=== PATIENT | male | born 1925 | race Caucasian/White ===

== ENCOUNTER → 2016-12-26 | Outpatient (CLI) | payer OTHER, MEDICARE ==
--- NOTE | 2016-12-26 17:08 | DX ---
Chest, PA and Lateral History: Prior amiodarone therapy, aortic valve disease Comparison: January 05, 2016 Findings: Mild cardiomegaly with redistribution of blood flow to the upper lung zones is consistent w ith compensated CHF and mild pulmonary venous hypertension. There are no pleural effusions or curly B lines. The azygos vein is not dilated. A single median sternotomy wire, aortic valve replacement, de nse atherosclerotic coronary artery disease and CABG clips are again present. There is no focal infil trate or consolidation. There is specifically no evidence of interstitial lung disease or pleural eff usion. A right shoulder implant remains in place. Multiple low thoracic and upper lumbar mild olesya sions are stable and suggest underlying osteoporosis. There is severe osteoarthritis of the left shou lder joint, with superior subluxation of the humeral head and chronic eburnation of the distal clavic le, coracoid process and glenoid. : Impression: 1. No obvious interstitial lung disease. 2. Compensated CHF 3. Suspect severe osteoporosis. Patient might benefit from a DEXA scan. 4. 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
== END ==
LOC: FIMAGING 14:18 → EDSTATUS 14:20 → FIMAGING 14:20
PROVIDERS: ATTEND Internal Medicine Cardiovascular Disease
DX: N64.4 Mastodynia (principal); I27.0 Primary pulmonary hypertension; Z79.899 Other long term (current) drug therapy; Z95.2 Presence of prosthetic heart valve; Z95.1 Presence of aortocoronary bypass graft; Z96.611 Presence of right artificial shoulder joint; M19.012 Primary osteoarthritis, left shoulder

== ENCOUNTER → 2017-04-21 | Outpatient (CLI) | payer OTHER, MEDICARE | LOC: FIMAGING 08:48 | PROVIDERS: ATTEND Internal Medicine Pulmonary Disease | DX: I50.9 Heart failure, unspecified (principal); I25.10 Atherosclerotic heart disease of native coronary artery without angina pectoris; I35.9 Nonrheumatic aortic valve disorder, unspecified ==

== ENCOUNTER 2017-04-22 06:54 | Inpatient (IN) | payer OTHER, MEDICARE ==
[2017-04-22] MEDS ORDERED: FUROSEMIDE 40 MG/4 ML VIAL IVP ONE (07:32)
--- NOTE | 2017-04-22 07:37 | EDPHY ---
H & P Time Seen by Provider: 04/22/17 07:16 HPI/ROS: HPI Shortness of breath. 89-year-old male, history of heart valve replacement and congestive heart failure presents with complaint of shortness of breath, worsening over the last 2 weeks, his coverage analyst is Dr. Shady Madison. Dr. Madison ordered some blood work and a chest x-ray on him yesterday but did not see him. Dr. Madison wanted him to come to the hospital last night but he refused. He reports he was feeling more short of breath this morning. No associated chest pain. He is on oxygen at home, he has been using 4-5 L by nasal cannula 24-7 for the last several days at least. ROS: Constitutional: No fever, no chills. No weakness. Eyes: No discharge. No changes in vision. ENT: No sore throat. No nasal congestion or rhinorrhea. Respiratory: No cough. As above. Cardiac: No chest pain, no palpitations. Gastrointestinal: No abdominal pain, no vomiting, no diarrhea. Genitourinary: No hematuria. No dysuria or increased frequency with urination. Musculoskeletal: No back pain. No neck pain. No myalgias or arthralgias. Skin: No rashes. Neurological: No headache. No focal weakness or altered sensation. Past medical history: Aortic valve replacement, June of 2014, hypertension, coronary artery disease with stents, atrial arrhythmia, prostate cancer with prostatectomy, spinal stenosis, dyslipidemia, AV valve replacement 2014, hypothyroidism, pulmonary embolism 2014. He is on aspirin. No other antiplatelet or anticoagulation medication. Social history: He is here with his . Nonsmoker. No alcohol. Physical Exam: General Appearance: Alert, no distress. Mildly dyspneic. This patient is responding to questions appropriately and in full sentences. This patient appears well-hydrated and well-nourished. Eyes: Pupils equal and round no pallor or injection. No lid edema, erythema or injection. ENT, Mouth: Mucous membranes are moist. The pharyngeal tissues are unremarkable. No edema or swelling. No asymmetry suggestive of abscess. No erythema or exudates. Respiratory: There are no retractions, scant wheezing on auscultation with shallow breaths and mild tachypnea. Cardiovascular: Irregular rhythm. No murmur. Gastrointestinal: Abdomen is soft and nontender, no masses, bowel sounds normal. No focal tenderness at McBurney's point. No Harris sign. Neurological: Motor sensory function is grossly intact. Cranial nerves are normal. Gait is normal. Skin: Warm and dry, no rashes. Musculoskeletal: Neck is supple and nontender. Extremities are asymmetrical with diffuse edema, 1+ in right lower extremity, patient states that right lower extremity swelling is chronic. All joints range without pain or impingement. Psychiatric: No agitation. No depression. Database: EKG: EKG time is 7:37 a.m.; EKG shows a narrow complex atrial fibrillation with ventricular rate of 70 The QRS, QT intervals are within normal limits. There are no ST-T wave changes indicative of ischemic or injury pattern. No evidence of right heart strain. No significant change from prior EKG dated 01/05/2016. Interpreted by me. Imaging: Chest x-ray AP portable; [id number] congestive heart failure, left-sided pleural effusion unchanged from prior. No evidence of infiltrate. Interpreted by me. Ultrasound right lower extremity; no evidence of DVT. Results were discussed with staff radiologist. Procedures: Emergency department course: IV placed. He was placed on a cardiac rehabilitation program director. EKG and chest x-ray obtained. He was placed on oxygen, 4 L by nasal cannula. Vital signs have been reviewed. Pulse oximetry 92-94% on 4 L. he takes 20 mg of Lasix twice daily. He was given 40 mg IV in the emergency department. 8:45 a.m., patient re-evaluated. Resting comfortably at this time. He is currently on 2 and 0.5 L of oxygen by nasal cannula. Pulse oximetry is 94%. He states that he is feeling better. Narrow complex atrial fibrillation on the monitor with ventricular rate of 61. Blood pressure 160/70. Discussed results of emergency department diagnostics with him and his . Discussed plan for admission. All of their questions were answered. 9:00 a.m., discussed case with hospitalist. Patient accepted for admission by Dr. Almanza. The patient's coverage analyst Dr. Shady Madison will be consulted. D -dimer elevated at 0.77. Will hold CT angiogram at this time secondary to renal insufficiency. Further workup for pulmonary embolism will be deferred to hospitalist service. Patient admitted to telemetry in stable condition. Differential Diagnosis: The differential diagnosis on this patient includes but is not limited to congestive heart failure, reactive airway disease, acute coronary syndrome, pulmonary embolism. This represents a partial list of diagnoses considered. These considerations are based on history, physical exam, past history, reassessment and diagnostic testing. Smoking Status: Former smoker Constitutional: Initial Vital Signs Temperature (C) 36.4 C 04/22/17 06:59 Heart Rate 64 04/22/17 06:59 Respiratory Rate 22 H 04/22/17 06:59 Blood Pressure 184/60 H 04/22/17 06:59 O2 Sat (%) 92 04/22/17 06:59 O2 Delivery Mode Nasal Cannula O2 (L/minute) 2 Allergies/Adverse Reactions: Penicillins Allergy (Unknown, Verified 04/22/17 07:03) clopidogrel bisulfate [From Plavix] Allergy (Verified 04/22/17 07:03) Home Medications: Medication Instructions Recorded Acetaminophen [Tylenol 325mg (*)] 1 - 2 tab PO Q6 PRN 01/05/16 Amiodarone HCl [Pacerone] 50 mg PO DAILY 01/05/16 Aspirin [Aspirin 81mg (*)] 81 mg PO DAILY 01/05/16 Fluticasone Nasal [Flonase Nasal 2 sprays NASAL DAILY 01/05/16 [place]] Furosemide [Lasix 20 MG (*)] 20 mg PO DAILY 01/05/16 Levothyroxine [Synthroid 50 mcg 50 mcg PO DAILY06 01/05/16 (*)] Metoprolol Tartrate [Lopressor 50 50 mg PO BID 01/05/16 mg (*)] Polyethylene Glycol 3350 [Miralax 17 gm PO DAILY PRN 01/05/16 17 gm (*)] Spironolactone [Aldactone 25 MG 12.5 mg PO DAILY 01/05/16 (*)] amLODIPine BESYLATE [Norvasc 5 mg 5 mg PO DAILY 01/05/16 (*)] Acetaminophen [Tylenol 325mg (*)] 650 mg PO Q6 PRN #0 tab 01/07/16 Pantoprazole Sodium [Protonix 40mg 40 mg PO DAILY #30 tab 01/07/16 (*)] Medical Decision Making - Diagnostics Imaging Results: Imaging Impressions Chest X-Ray 04/22/17 07:17 Impression: Minimally worse CHF versus fluid overload since one day prior. Extremity Venous Study 04/22/17 07:33 Impression: There is no sonographic evidence of deep or superficial vein thrombosis in the right lower extremity. Findings were discussed with Tara Paul MD at 8:21 am, on 04/22/2017. - Data Points Laboratory Results: Laboratory Results 04/22/17 07:45 04/22/17 07:45 04/22/17 04/22/17 04/22/17 07:45 07:45 07:45 WBC 6.12 10^3/uL 10^3/uL (3.80-9.50) RBC 3.09 10^6/uL L 10^6/uL (4.40-6.38) Hgb 11.0 g/dL L g/dL (13.7-17.5) Hct 33.5 % L % (40.0-51.0) MCV 108.4 fL H fL (81.5-99.8) MCH 35.6 pg H pg (27.9-34.1) MCHC 32.8 g/dL g/dL (32.4-36.7) RDW 15.5 % H % (11.5-15.2) Plt Count 226 10^3/uL 10^3/uL (150-400) MPV 9.5 fL fL (8.7-11.7) Neut % (Auto) 73.3 % % (39.3-74.2) Lymph % (Auto) 15.0 % % (15.0-45.0) [place] % (Auto) 8.2 % % (4.5-13.0) Eos % (Auto) 2.3 % % (0.6-7.6) Baso % (Auto) 0.7 % % (0.3-1.7) Nucleat RBC Rel Count 0.0 % % (0.0-0.2) Absolute Neuts (auto) 4.49 10^3/uL 10^3/uL (1.70-6.50) Absolute Lymphs (auto) 0.92 10^3/uL L 10^3/uL (1.00-3.00) Absolute Monos (auto) 0.50 10^3/uL 10^3/uL (0.30-0.80) Absolute Eos (auto) 0.14 10^3/uL 10^3/uL (0.03-0.40) Absolute Basos (auto) 0.04 10^3/uL 10^3/uL (0.02-0.10) Absolute Nucleated RBC 0.00 10^3/uL 10^3/uL (0-0.01) Immature Gran % 0.5 % % (0.0-1.1) Immature Gran # 0.03 10^3/uL 10^3/uL (0.00-0.10) PT 14.8 SEC SEC (12.0-15.0) INR 1.16 (0.83-1.16) APTT 28.1 SEC SEC (23.0-38.0) D-Dimer 0.77 ug/mLFEU H ug/mLFEU (0.00-0.50) Sodium 141 mEq/L mEq/L (134-144) Potassium 4.6 mEq/L mEq/L (3.5-5.2) Chloride 101 mEq/L mEq/L (97-110) Carbon Dioxide 28 mEq/l mEq/l (22-31) Anion Gap 12 mEq/L mEq/L (8-16) BUN 27 mg/dL H mg/dL (7-23) Creatinine 1.7 mg/dL H mg/dL (0.7-1.3) Estimated GFR 38 Glucose 106 mg/dL H mg/dL (70-100) Calcium 8.7 mg/dL mg/dL (8.5-10.4) Troponin I 0.038 ng/mL H ng/mL (0-0.034) NT-Pro-B Natriuret Pep 2800 pg/mL H pg/mL (0-450) TSH 2.400 uIU/mL uIU/mL (0.465-4.680) Medications Given: Discontinued Medications Furosemide (Lasix Injection) 40 mg IVP EDNOW ONE Stop: 04/22/17 07:33 Last Admin: 04/22/17 07:45 Dose: 40 mg Departure - Departure Disposition: [facility] Inpatient Acute Clinical Impression: Dyspnea, Hypoxia, Congestive heart failure Referrals: Jonathan Nichols MD [Primary Care Provider] - As per Instructions
--- NOTE | 2017-04-22 07:39 | CPEKG ---
Heart Rate: 70 RR Interval: 857 QRSD Interval: 82 QT Interval: 416 QTC Interval: 449 QRS [place]: 32 T Wave [place]: 89 EKG Severity - ABNORMAL ECG - EKG Impression: ATRIAL FIBRILLATION EKG Impression: BORDERLINE T WAVE ABNORMALITIES Electronically Signed By: Shaun Lewis 24-Apr-2017 09:00:16
[2017-04-22 07:52] LABS: % IMMATURE GRANULYOCYTES 0.5 % (0.0-1.1); ABSOLUTE IMMATURE GRANULOCYTES 0.03 10^3/uL (0.00-0.10); ADD DIFF? NO; ADD MORPH? NO; ADD SCAN? NO; ATYPICAL LYMPHOCYTE FLAG 0 (0-99); FRAGMENT RBC FLAG 0 (0-99); HEMATOCRIT 33.5 % (40.0-51.0); LEFT SHIFT FLG 0 (0-99); LIPEMIA HEMOLYSIS FLAG 80 (0-99); MEAN CELL HEMOGLOBIN 35.6 pg (27.9-34.1); MEAN CELL HEMOGLOBIN CONCENTR. 32.8 g/dL (32.4-36.7); MEAN CELL VOLUME 108.4 fL (81.5-99.8); MEAN PLATELET VOLUME 9.5 fL (8.7-11.7); PLATELET CLUMPS FLAG 10 (0-99); PLATELET COUNT 226 10^3/uL (150-400); RED BLOOD CELL COUNT 3.09 10^6/uL (4.40-6.38); RED CELL DISTRIBUTION WIDTH 15.5 % (11.5-15.2)
[2017-04-22 08:02] LABS: ANION GAP 12 mEq/L (8-16); CALCIUM 8.7 mg/dL (8.5-10.4); CARBON DIOXIDE 28 mEq/l (22-31); CHLORIDE 101 mEq/L (97-110); CREATININE 1.7 mg/dL (0.7-1.3); GLOMERULAR FILTRATION RATE 38; GLUCOSE 106 mg/dL (70-100); POTASSIUM 4.6 mEq/L (3.5-5.2); SODIUM 141 mEq/L (134-144)
[2017-04-22 08:11] LABS: INR 1.16 (0.83-1.16); PROTIME(PATIENT) 14.8 SEC (12.0-15.0)
[2017-04-22 08:12] LABS: APTT 28.1 SEC (23.0-38.0)
[2017-04-22 08:21] LABS: TROPONIN I 0.038 ng/mL (0-0.034)
[2017-04-22] MEDS ORDERED: ONDANSETRON DISINTEGRATING 4 MG TAB PO PRN (11:50)
[2017-04-22] MEDS ORDERED: ACETAMINOPHEN 325 MG TAB PO PRN (11:50)
[2017-04-22] MEDS ORDERED: IPRATROPIUM 0.03% NASAL SPRAY EACHNARE PRN (11:52)
[2017-04-22] MEDS ORDERED: ZOLPIDEM TARTRATE 5 MG TAB PO PRN (11:52)
[2017-04-22] MEDS ORDERED: POLYETHYLENE GLYCOL 3350 17 GM PKT PO PRN (11:52)
[2017-04-22] MEDS ORDERED: FLUTICASONE NASAL 120 SPRAYS/16 GM MDI EACHNARE PRN (11:52)
[2017-04-22] MEDS ORDERED: TESTOSTERONE IM 100 MG/ML SYRINGE IM SCH (12:00)
--- NOTE | 2017-04-22 12:33 | GHP ---
[f rep st] HISTORY AND PHYSICAL DATE OF ADMISSION: 04/22/2017 CHIEF COMPLAINT: Shortness of breath. HISTORY OF PRESENT ILLNESS: This is an 89-year-old man with multiple medical problems who presents with a few weeks of shortness of breath. He saw his primary care provider, Dr. Nichols, about 3 we eks ago. He was noted to be tachypneic. At that point, went from using nocturnal oxygen to 24/7 ox ygen. He called Dr. Shady Madison, his racing board marker, who did order lab work, as well as a chest x-r ay. Dr. Madison then called him back and recommended that he come into the emergency department. He has chronic chest pain, which sounds sternal, due to previous sternotomy, which is unchanged. He do es have orthopnea. He has no weight gain or new lower extremity edema. He has been compliant with his cardiac medications, including his furosemide. He says that he does urinate when he takes it. He has not seen his drilling contractor recently. He has not had an echocardiogram recently. PAST MEDICAL/SURGICAL HISTORY: 1. Aortic valve replacement in 2013 with a redo operation in 2014. 2. Coronary artery disease, status post 7 stents, followed by Dr. Jones. 3. Hypertension. 4. Prostate cancer, status post prostatectomy. 5. Spinal stenosis. 6. Hyperlipidemia. 7. Hypothyroid. 8. PE in 2014, off anticoagulation due to acute blood loss anemia from presumed GI bleed. 9. Chronic kidney disease. 10. Paroxysmal atrial fibrillation. 11. Chronic respiratory failure. MEDICATIONS: Please see medication reconciliation. ALLERGIES: Penicillins, as well as clopidogrel. FAMILY HISTORY: Parents are . SOCIAL HISTORY: He lives at [facility]. He drinks a glass a wine at night. He does not smoke . He is accompanied by his . REVIEW OF SYSTEMS: A 10-point review of systems is conducted and is negative except per HPI. PHYSICAL EXAMINATION: VITAL SIGNS: Blood pressure is 174/64, heart rate is 57, respiration rate 23 , saturating 97% on 3 L. Temperature is 36.3. GENERAL: The patient is a pleasant man who appears mildly tachypneic but otherwise in no acute distress. HEENT: Shows him to be normocephalic, atraum atic. CARDIOVASCULAR: Exam shows him to be irregularly irregular. I do not appreciate any murmurs , rubs, or gallops. PULMONARY: Exam shows bilateral basilar crackles. He is in mild respiratory d istress. ABDOMEN: Soft, nontender, nondistended. SKIN: No rash. : Exam shows no [place]. NEUR OLOGIC: Exam shows him to be alert and oriented x3. He is moving all extremities. PSYCHIATRIC: E xam shows a normal mood and affect. LABORATORY DATA: Hemoglobin is 11. D-dimer 0.77, creatinine is 1.7. BNP is 2800. Troponin 0.038. DATA: 1. I reviewed his chart. 2. I reviewed his extremity venous study. This shows no clot in his right lower extremity. 3. I personally viewed and interpreted his chest x-ray. This shows left-sided pleural effusion. H callie has mild pulmonary vascular congestion. 4. EKG, which I personally viewed and interpreted, shows atrial fibrillation. He has a normal axis ; his rate is 70. IMPRESSION AND PLAN: This is an 89-year-old man who presents with acute on chronic congestive heart failure exacerbation. 1. Acute on chronic congestive heart failure exacerbation: No clear precipitants. He has known va lvular disease, status post aortic valve replacement, as well as diastolic dysfunction; last ejectio n fraction was normal. Agree with diuresis as started by the emergency department. We will check a [facility] basic metabolic panel before more Lasix today. I scheduled him to get Lasix 20 IV b.i.d. sta rting tomorrow morning. We will continue his Aldactone, metoprolol. I wonder if carvedilol would n ot be a better medicine for him. 2. Acute hypoxic respiratory failure: Strongly suspect that this is due to congestive heart failur e. He does have a D-dimer of 0.77 with a history of a clot. Will not get a CT angio given his radu l failure. I do not think empiric anticoagulation is appropriate, given his history of 2 life-threa tening gastrointestinal bleeds. Will follow his symptoms with Lasix and see if they resolve. If no t, could consider other diagnostic studies like V-Q scan. 3. Indeterminate troponin: Will trend. I doubt that this is an acute myocardial infarction, given his normal electrocardiogram and subacute presentation. 4. Coronary artery disease, status post 7 stents: Continue his cardiac medications. 5. Aortic valve replacement in 2013, status post redo in 2015: Check echocardiogram. 6. Hypertension: Continue antihypertensives. 7. Hyperlipidemia: Statin. 8. Hypothyroid: Synthroid. 9. History of pulmonary embolism in 2015: Off anticoagulation due to gastrointestinal bleeds. 10. Chronic kidney disease: At baseline, follow closely with diuresis. 11. Atrial fibrillation: Rate controlled on metoprolol. Continue aspirin for cerebrovascular acci dent prophylaxis. 12. Code status is do not resuscitate. 13. Venous thromboembolism prophylaxis will be with subcutaneous heparin. /[id number]/MODL
[2017-04-22] MEDS: HEPARIN 5,000 UNIT/0.5 ML SYR SC SCH ×2 (13:29→22:53)
--- NOTE | 2017-04-22 14:40 | ECHO ---
[id number] + + [address] : : [place] [address] : : [phone] + Adult Echocardiographic Report + --------+ :Name: SAHIL MOY JStudy Date: 04/22/2017 12:47 PM : : Hospital Admission Number: [id number] Locat ion: 211: :: 1925 Gender: Male Height: 66 in : :Age: 89 yrs Race: WH Weight: 166 l b : :Reason For Study: Eval LV Fx : : BSA: 1.8 mete rs2 : :History: Hx AVR 2015, Hypoxia, New onset A-fib : + --------+ MMode/2D Measurements \T\ Calculations IVSd: 1.2 cm LVIDd: 4.2 cm FS: 38.0 % LVOT diam: 2.1 cm LVPWd: 1.1 cm LVIDs: 2.6 cm EDV(Teich): 78.3 ml LVOT area: 3.5 cm2 ESV(Teich): 24.6 ml EF(Teich): 68.6 % Normal Measurement Values: + + :LVIDd (3.5-5.7cm) IVSd (0.6-1.1cm) LVPWd (0.6-1.1cm) Aortic Root (2.0-3.7cm)Left Atrium (1.5-4.0cm): :LV Vol(d) (76-115ml) LV Vol(s) (29-48ml) Ejec Fraction (50-65%)PV Miguel (0.6- 1.2m/s) TV Miguel (0.4-1.0m/s) : :MV E Miguel (0.8-1.0m/s)MV A Miguel (0.3-1.0m/s)LVOT Miguel (0.7-1.2m/s) Asc Ao Miguel ( 0.9-1.8m/s) : + + Doppler Measurements \T\ Calculations MV E max miguel: Ao V2 max: LV V1 max: SV(LVOT): 176.2 cm/sec 191.4 cm/sec 73.4 cm/sec 58.1 ml MV A max miguel: Ao max P.7 mmHgLV V1 max P.3 cm/sec Ao mean P.6 mmHg2.2 mmHg MV E/A: 2.9 Ao V2 mean: LV V1 mean P.6 cm/sec 1.6 mmHg Ao V2 VTI: 47.9 cm LV V1 mean: MADI(I,D): 1.2 cm2 61.9 cm/sec LV V1 VTI: 16.8 cm MADI(V,D): 1.3 cm2 PA V2 max: 86.9 cm/sec PA max P.0 mmHg Left Ventricle The left ventricle is normal in size. There is normal left ventricular wall thickness. The left ventricular ejection fraction is normal. There is Doppler evidence for diastolic dysfunction. The left ventricle is hyperdynamic. Ejection Fraction = 75%. No regional wall motion abnormalities noted. Right Ventricle The right ventricle is normal in size and function. Atria The left atrium is moderately dilated. The right atrium is mildly dilated. Mitral Valve There is mild mitral annular calcification. There is trace mitral regurgitation. Tricuspid Valve There is trace tricuspid regurgitation. Right ventricular systolic pressure is normal. Aortic Valve Trace aortic regurgitation. There is a bioprosthetic aortic valve. The prosthetic aortic valve is well-seated. The gradient is normal for this prosthetic aortic valve. Pulmonic Valve The pulmonic valve is not well visualized. There is no pulmonic valvular regurgitation. Great Vessels The aortic root is normal size. Pericardium/Pleural There is no pericardial effusion. Conclusion A complete two-dimensional transthoracic echocardiogram was performed (2D, M-mode, Doppler and color flow Doppler). (1) Left ventricular systolic ejection fraction was normal (75%) - normal wall motion (2) No left ventricular hypertrophy (3) Diastolic dysfunction was present (4) Normal right ventricular size and function (5) Moderate dilation of the left atrium with mild dilation to the right (6) Physiologic mitral regurgitation (7) Bioprosthetic aortic valve without appreciable insufficiency noted - mean gradient was 9.6 mm Hg (8) Physiologic tricuspid regurgitation - RVSP was within normal limits (9) Poor visualization of pulmonic valve (10) In comparison to prior echocardiogram from 08-15-15, trivial increase in the mean gradient to the aortic valve has been noted (from 6.1 mm Hg to 9.6 mm Hg). No other gross changes noted. Final Reading Physician: Jaida Pierre signed on 04/22/2017 02:39 PM Ordering Physician: Lennox Almanza Performed By: Juan Jacinto RDCS
[2017-04-22 16:32] LABS: ANION GAP 13 mEq/L (8-16); CALCIUM 8.9 mg/dL (8.5-10.4); CARBON DIOXIDE 28 mEq/l (22-31); CHLORIDE 99 mEq/L (97-110); CREATININE 1.9 mg/dL (0.7-1.3); GLOMERULAR FILTRATION RATE 34; GLUCOSE 91 mg/dL (70-100); POTASSIUM 4.4 mEq/L (3.5-5.2); SODIUM 140 mEq/L (134-144)
[2017-04-22 16:44] LABS: TROPONIN I 0.032 ng/mL (0-0.034)
[2017-04-22] MEDS: ASPIRIN 81 MG CHEWABLE TAB PO SCH (19:54)
[2017-04-22] MEDS: METOPROLOL SUCCINATE XR 25 MG TAB PO SCH (19:54)
[2017-04-22] MEDS: ATORVASTATIN CALCIUM 20 MG TAB PO SCH (19:54)
[2017-04-22] MEDS ORDERED: NON-FORMULARY NEW DRUG (Simvastatin [Zocor] 40 MG) PO SCH (21:00)
[2017-04-23 04:31] LABS: % IMMATURE GRANULYOCYTES 0.5 % (0.0-1.1); ABSOLUTE IMMATURE GRANULOCYTES 0.03 10^3/uL (0.00-0.10); ADD DIFF? NO; ADD MORPH? NO; ADD SCAN? NO; ATYPICAL LYMPHOCYTE FLAG 0 (0-99); FRAGMENT RBC FLAG 0 (0-99); HEMATOCRIT 32.6 % (40.0-51.0); HEMOGLOBIN 10.7 g/dL (13.7-17.5); LEFT SHIFT FLG 0 (0-99); LIPEMIA HEMOLYSIS FLAG 80 (0-99); MEAN CELL HEMOGLOBIN 35.5 pg (27.9-34.1); MEAN CELL HEMOGLOBIN CONCENTR. 32.8 g/dL (32.4-36.7); MEAN CELL VOLUME 108.3 fL (81.5-99.8); MEAN PLATELET VOLUME 10.6 fL (8.7-11.7); PLATELET CLUMPS FLAG 0 (0-99); PLATELET COUNT 227 10^3/uL (150-400); RED BLOOD CELL COUNT 3.01 10^6/uL (4.40-6.38); RED CELL DISTRIBUTION WIDTH 15.3 % (11.5-15.2)
[2017-04-23 04:58] LABS: ANION GAP 12 mEq/L (8-16); CALCIUM 8.3 mg/dL (8.5-10.4); CARBON DIOXIDE 24 mEq/l (22-31); CHLORIDE 103 mEq/L (97-110); CREATININE 1.9 mg/dL (0.7-1.3); GLOMERULAR FILTRATION RATE 34; GLUCOSE 93 mg/dL (70-100); POTASSIUM 4.3 mEq/L (3.5-5.2); SODIUM 139 mEq/L (134-144)
[2017-04-23] MEDS: LEVOTHYROXINE 50 MCG TAB PO SCH (06:28)
[2017-04-23] MEDS: HEPARIN 5,000 UNIT/0.5 ML SYR SC SCH ×3 (06:28→21:35)
[2017-04-23] MEDS: amLODIPine BESYLATE 5 MG TAB PO SCH (08:35)
[2017-04-23] MEDS: FUROSEMIDE 20 MG/2 ML VIAL IVP SCH ×2 (08:36→15:26)
[2017-04-23] MEDS: METOPROLOL SUCCINATE XR 25 MG TAB PO SCH ×2 (08:36→21:35)
[2017-04-23] MEDS: SPIRONOLACTONE 25 MG TAB PO SCH (08:36)
--- NOTE | 2017-04-23 09:36 | HOSPPROG ---
Hospitalist Progress Note Assessment/Plan: # acute on chronic diastolic CHF exacerbation - some diuresis yesterday - cont lasix 20 iv bid if he tolerates; cont aldactone - cont metop 20 25 bid - CXR tomorrow # a-fib: metop and asa (no AC d/t GIB) # htn: amlodipine, lasix, aldactone, metop - may need to hold amlodipine # CAD/indet trop - will not w/u further - cont asa/metop/statin # AVR - gradients normal on echo # hypothyroid - synthroid # hx PE - off AC d/t GIB # CKD - baseline; follow closely # ppx - [facility] Subjective: feels slightly lightheaded, difficulty ambulating Objective: Vital Signs Temp Pulse Resp BP Pulse Ox 36.4 C 81 18 140/47 H 97 04/23/17 07:48 04/23/17 09:23 04/23/17 07:48 04/23/17 09:23 04/23/17 07:48 Laboratory Results 04/23/17 03:33 04/23/17 03:33 04/22/17 04/23/17 04/24/17 05:59 05:59 05:59 Intake Total 200 Output Total 950 Balance -750 PT 14.8 SEC (12.0-15.0) 04/22/17 07:45 INR 1.16 (0.83-1.16) 04/22/17 07:45 tele personally reviewed - a-fib - Physical Exam Constitutional: no apparent distress, appears nourished Cardiovascular: regular rate and rhythym, no murmur, rub, or gallop Respiratory: no respiratory distress (mild), inspiratory crackles (bilat bases) , No clear to auscultation, No expiratory wheeze, No rhonchi Gastrointestinal: normoactive bowel sounds, soft, non-tender abdomen, no palpable masses ICD10 Worksheet Patient Problems: Problems Problem Status Onset Chronic Disease Mgmt/Transitional Care Acute Congestive heart failure Acute Dyspnea Acute Hypoxia Acute Dyspnea on exertion Acute Mitral valve insufficiency Acute Prosthetic cardiac paravalvular leak Acute S/P aortic valve replacement with bioprosthetic valve Acute Atrial fibrillation, chronic Chronic Beta-christiano intolerance Chronic CAD (coronary artery disease) Chronic CKD (chronic kidney disease) stage 3, GFR 30-59 ml/min Chronic COPD, mild Chronic Chronic anemia Chronic Chronic anticoagulation Chronic Oxygen dependent Chronic Physical deconditioning Chronic Pulmonary hypertension, secondary Chronic Sick sinus syndrome Chronic Spinal stenosis of lumbar region Chronic
[2017-04-23] MEDS: WHITE WINE 120 ML BOTTLE PO SCH (16:55)
[2017-04-23] MEDS: ASPIRIN 81 MG CHEWABLE TAB PO SCH (21:35)
[2017-04-23] MEDS: ATORVASTATIN CALCIUM 20 MG TAB PO SCH (21:35)
[2017-04-24 04:48] LABS: % IMMATURE GRANULYOCYTES 0.6 % (0.0-1.1); ABSOLUTE IMMATURE GRANULOCYTES 0.04 10^3/uL (0.00-0.10); ADD DIFF? NO; ADD MORPH? NO; ADD SCAN? NO; ATYPICAL LYMPHOCYTE FLAG 0 (0-99); FRAGMENT RBC FLAG 0 (0-99); HEMATOCRIT 33.4 % (40.0-51.0); HEMOGLOBIN 10.9 g/dL (13.7-17.5); LEFT SHIFT FLG 0 (0-99); LIPEMIA HEMOLYSIS FLAG 80 (0-99); MEAN CELL HEMOGLOBIN CONCENTR. 32.6 g/dL (32.4-36.7); MEAN CELL VOLUME 107.4 fL (81.5-99.8); MEAN PLATELET VOLUME 10.4 fL (8.7-11.7); PLATELET CLUMPS FLAG 10 (0-99); PLATELET COUNT 236 10^3/uL (150-400); RED BLOOD CELL COUNT 3.11 10^6/uL (4.40-6.38)
[2017-04-24 05:03] LABS: ANION GAP 13 mEq/L (8-16); CALCIUM 8.3 mg/dL (8.5-10.4); CARBON DIOXIDE 24 mEq/l (22-31); CHLORIDE 102 mEq/L (97-110); CREATININE 1.9 mg/dL (0.7-1.3); GLOMERULAR FILTRATION RATE 34; GLUCOSE 93 mg/dL (70-100); POTASSIUM 4.1 mEq/L (3.5-5.2); SODIUM 139 mEq/L (134-144)
[2017-04-24] MEDS: HEPARIN 5,000 UNIT/0.5 ML SYR SC SCH ×3 (06:39→21:21)
[2017-04-24] MEDS: LEVOTHYROXINE 50 MCG TAB PO SCH (06:39)
[2017-04-24] MEDS: FUROSEMIDE 20 MG/2 ML VIAL IVP SCH ×2 (09:24→15:48)
[2017-04-24] MEDS: SPIRONOLACTONE 25 MG TAB PO SCH (09:27)
[2017-04-24] MEDS: METOPROLOL SUCCINATE XR 25 MG TAB PO SCH ×2 (09:27→21:21)
[2017-04-24] MEDS: amLODIPine BESYLATE 5 MG TAB PO SCH (09:28)
--- NOTE | 2017-04-24 09:53 | HOSPPROG ---
Hospitalist Progress Note Assessment/Plan: # acute on chronic diastolic CHF exacerbation - good diuresis - improving - cont lasix 20 iv bid; cont aldactone - CXR tomorrow # a-fib: metop and asa (no AC d/t GIB) # htn: amlodipine, lasix, aldactone, metop # CAD/indet trop - will not w/u further - defer to outpatient - cont asa/metop/statin # AVR - gradients normal on echo # hypothyroid - synthroid # hx PE - off AC d/t GIB # CKD - baseline; follow closely # ppx - [facility] # dispo - hopefully tomorrow to [place] independent Subjective: breathing better; ambulating well; wants to go home Objective: Vital Signs Temp Pulse Resp BP Pulse Ox 36.4 C 66 23 H 157/63 H 94 04/24/17 07:05 04/24/17 09:27 04/24/17 07:05 04/24/17 09:27 04/24/17 07:05 Laboratory Results 04/24/17 03:40 04/24/17 03:40 04/23/17 04/24/17 04/25/17 05:59 05:59 05:59 Intake Total 200 1534 Output Total 950 1126 Balance -750 408 PT 14.8 SEC (12.0-15.0) 04/22/17 07:45 INR 1.16 (0.83-1.16) 04/22/17 07:45 CXR personally viewed and interpreted tele personally reviewed - Physical Exam Constitutional: no apparent distress, appears nourished Cardiovascular: systolic murmur, irregularly irregular, No diastolic murmur, No tachycardia, No bradycardia, No edema Respiratory: no respiratory distress, no rales or rhonchi, inspiratory crackles (bilat bases) Gastrointestinal: normoactive bowel sounds, soft, non-tender abdomen, no palpable masses ICD10 Worksheet Patient Problems: Problems Problem Status Onset Chronic Disease Mgmt/Transitional Care Acute CAD (coronary artery disease) Chronic Prosthetic cardiac paravalvular leak Acute Sick sinus syndrome 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
[2017-04-24] MEDS: WHITE WINE 120 ML BOTTLE PO SCH (17:52)
[2017-04-24] MEDS: HYDROCORTISONE 1% CREAM TP SCH (19:30)
[2017-04-24] MEDS: ATORVASTATIN CALCIUM 20 MG TAB PO SCH (21:21)
[2017-04-24] MEDS: ASPIRIN 81 MG CHEWABLE TAB PO SCH (21:21)
[2017-04-25 04:52] LABS: POTASSIUM 4.2 mEq/L (3.5-5.2)
[2017-04-25 04:53] LABS: ANION GAP 11 mEq/L (8-16); CALCIUM 8.5 mg/dL (8.5-10.4); CARBON DIOXIDE 25 mEq/l (22-31); CHLORIDE 101 mEq/L (97-110); CREATININE 1.8 mg/dL (0.7-1.3); GLOMERULAR FILTRATION RATE 36; GLUCOSE 95 mg/dL (70-100); SODIUM 137 mEq/L (134-144)
[2017-04-25] MEDS: LEVOTHYROXINE 50 MCG TAB PO SCH (06:40)
[2017-04-25] MEDS: HEPARIN 5,000 UNIT/0.5 ML SYR SC SCH (06:40)
[2017-04-25] MEDS: METOPROLOL SUCCINATE XR 25 MG TAB PO SCH (08:06)
[2017-04-25] MEDS: amLODIPine BESYLATE 5 MG TAB PO SCH (08:07)
[2017-04-25] MEDS: FUROSEMIDE 20 MG/2 ML VIAL IVP SCH (08:07)
[2017-04-25] MEDS: SPIRONOLACTONE 25 MG TAB PO SCH (08:07)
[2017-04-25] MEDS ORDERED: FUROSEMIDE 40 MG/4 ML VIAL IVP ONE (10:38)
--- NOTE | 2017-04-25 10:55 | HOSPPROG ---
Hospitalist Progress Note Assessment/Plan: 89 yo M w AVR a/w dyspnea, orthopnea acute on chronic diastolic CHF exacerbation - good diuresis - improving give add'l 40 of IV lasix today take 40 mg po lasix X 3 days at home f/u next week w cardiology -cxr w improved but not resolved chf a-fib: metop and asa (no AC d/t GIB) htn: amlodipine, lasix, aldactone, metop CAD/indet trop - will not w/u further - defer to outpatient - cont asa/metop/statin AVR - gradients normal on echo hypothyroid - synthroid hx PE - off AC d/t GIB CKD - baseline; follow closely ppx - [facility] dispo - home today > 30 minutes Subjective: tele: no arrhythmia (intero by me). case d/w cardiology PARIS Chaudhary. cxr: improved chf (interp by me) Objective: Vital Signs Temp Pulse Resp BP Pulse Ox 35.8 C L 58 L 17 142/66 H 99 04/25/17 08:00 04/25/17 08:00 04/25/17 08:00 04/25/17 08:00 04/25/17 08:00 Laboratory Results 04/24/17 03:40 04/25/17 03:34 04/24/17 04/25/17 04/26/17 05:59 05:59 05:59 Intake Total 1534 400 240 Output Total 1126 800 Balance 408 -400 240 PT 14.8 SEC (12.0-15.0) 04/22/17 07:45 INR 1.16 (0.83-1.16) 04/22/17 07:45 - Physical Exam Constitutional: no apparent distress, appears nourished Eyes: PERRL, anicteric sclera Ears, Nose, Mouth, Throat: moist mucous membranes, hearing normal, ears appear normal Cardiovascular: regular rate and rhythym, no murmur, rub, or gallop, systolic murmur Respiratory: no respiratory distress, no rales or rhonchi Gastrointestinal: normoactive bowel sounds, soft, non-tender abdomen Genitourinary: no bladder fullness, No forrest in urethra Skin: warm, normal color Musculoskeletal: full muscle strength, no muscle tenderness Neurologic: AAOx3 ICD10 Worksheet Patient Problems: Problems Problem Status Onset Congestive heart failure Acute Dyspnea Acute Hypoxia Acute Chronic Disease Mgmt/Transitional Care Acute Dyspnea on exertion Acute Mitral valve insufficiency Acute Prosthetic cardiac paravalvular leak Acute S/P aortic valve replacement with bioprosthetic valve Acute Atrial fibrillation, chronic Chronic Beta-christiano intolerance Chronic CAD (coronary artery disease) Chronic CKD (chronic kidney disease) stage 3, GFR 30-59 ml/min Chronic COPD, mild Chronic Chronic anemia Chronic Chronic anticoagulation Chronic Oxygen dependent Chronic Physical deconditioning Chronic Pulmonary hypertension, secondary Chronic Sick sinus syndrome Chronic Spinal stenosis of lumbar region Chronic
[2017-04-25] MEDS: HYDROCORTISONE 1% CREAM TP SCH (11:47)
[2017-04-25 11:57] VITALS: BP 133/58; PULSE 65; RESP 16; TEMP 97.3
[2017-04-25 12:47] VITALS: O2SAT 86
--- NOTE | 2017-04-25 17:15 | PDIAF ---
- Diagnosis Diagnosis: diastolic heart failure Code Status: Do Not Resuscitate - Medication Management Discharge Medications: Medications to Continue on Transfer Acetaminophen [Tylenol 325mg (*)] 1 - 2 tab PO Q6 PRN 01/05/16 [Last Taken Unknown] Aspirin [Aspirin 81mg (*)] 81 mg PO HS 01/05/16 [Last Taken 04/21/17] Fluticasone Nasal [Flonase Nasal [place]] 1 sprays NASAL DAILY PRN 01/05/16 [Last Taken Unknown] Levothyroxine [Synthroid 50 mcg (*)] 50 mcg PO DAILY06 01/05/16 [Last Taken 05/03] Polyethylene Glycol 3350 [Miralax 17 gm (*)] 17 gm PO DAILY PRN 01/05/16 [Last Taken 04/22/17] Spironolactone [Aldactone 25 MG (*)] 12.5 mg PO DAILY 01/05/16 [Last Taken 04/22] amLODIPine BESYLATE [Norvasc 5 mg (*)] 5 mg PO DAILY 01/05/16 [Last Taken ] Ipratropium 0.03% Nasal [Atrovent 0.03% Nasal (*)] 2 sprays [place]ACH[place] TID PRN 05/03 [Last Taken Unknown] Metoprolol Succinate Xr [Toprol Xl 25 mg (*)] 25 mg PO BID 04/22/17 [Last Taken 04/22/17] Multivitamins [Multivitamin (*)] 1 each PO DAILY 04/22/17 [Last Taken Unknown] Simvastatin [Zocor] 40 mg PO HS 04/22/17 [Last Taken 04/21/17] Testosterone IM [Testosterone 100mg/ml IM inj (*)] 125 mg IM Q14D 04/22/17 [ Last Taken 2 Weeks Ago] Zolpidem Tartrate [Ambien 5MG (*)] 5 mg PO HS PRN 04/22/17 [Last Taken 04/21/17] Furosemide [Lasix 20 MG (*)] 20 mg PO DAILY #30 tab 04/25/17 [Last Taken Unknown ] Discharge Medications: Refer to the Discharge Home Medication list for PRN reason. - Orders Services needed: Registered Nurse - Follow Up Care Current Providers and Referrals: Jonathan Nichols MD [Primary Care Provider] - As per Instructions
--- NOTE | 2017-04-25 17:35 | GDS ---
[f rep st] DISCHARGE SUMMARY DISCHARGE DIAGNOSES: 1. [id number] diastolic heart failure. 2. History of aortic valve replacement. 3. Coronary disease, status post 7 stents. 4. Indeterminate troponin. HOSPITAL COURSE: Please see admission history and physical by Dr. Paul Almanza. The patient present ed with increased work of breathing and orthopnea. Had an echocardiogram which was essentially unch anged, showing bioprosthetic aortic valve with low mean gradient with no insufficiency and diastolic dysfunction. He was diuresed with Lasix IV. His I's and O's did not come down that much; he was n egative about 1.5 L. Weight went down about a kilogram, but he had improvement in his symptoms. No tably, his BNP stayed about the same as well. Patient is feeling better and anxious to go home. 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 I spoke with Barak Chaudhary, Dr. Jones's PA, who has seen him in the past, and he will see him in followup. I did advise the patient to take Lasix 40 b.i.d. for 3 days and then resume 40 daily. He has followup next week. /[id number]/MODL
== END 2017-04-25 13:47 | disposition home or self-care (01) | DRG 291 ==
LOC: F2W 10:18
PROVIDERS: ADMIT Student in an Organized Health Care Education/Training Program; ATTEND Student in an Organized Health Care Education/Training Program
DX: I13.0 Hypertensive heart and chronic kidney disease with heart failure and stage 1 through stage 4 chronic kidney disease, or unspecified chronic kidney disease (principal); I50.33 Acute on chronic diastolic (congestive) heart failure; I25.10 Atherosclerotic heart disease of native coronary artery without angina pectoris; E78.5 Hyperlipidemia, unspecified; E03.9 Hypothyroidism, unspecified; N18.9 Chronic kidney disease, unspecified; Z66 Do not resuscitate; Z85.46 Personal history of malignant neoplasm of prostate; Z86.711 Personal history of pulmonary embolism; Z79.01 Long term (current) use of anticoagulants; Z95.5 Presence of coronary angioplasty implant and graft; Z95.4 Presence of other heart-valve replacement
CPT/HCPCS: 96374; 97116-GP; 97161-GP; 97166-GO; 97530-GO; 97535-GO; G8978-GP-CJ; G8979-GP-CI; G8980-GP-CI; G8987-GO-CJ; G8988-GO-CI; G8989-GO-CI; J1071; J1940

== ENCOUNTER → 2017-05-21 | Outpatient (CLI) | payer OTHER, MEDICARE | LOC: BMCIMAGING 08:38 | PROVIDERS: ATTEND Physician Assistant Medical | DX: R60.0 Localized edema (principal); R19.09 Other intra-abdominal and pelvic swelling, mass and lump ==

== ENCOUNTER → 2017-06-09 | Outpatient (CLI) | payer OTHER, MEDICARE | LOC: BMCIMAGING 12:15 | PROVIDERS: ATTEND Internal Medicine Cardiovascular Disease | DX: I50.33 Acute on chronic diastolic (congestive) heart failure (principal); I48.1 Persistent atrial fibrillation; J90 Pleural effusion, not elsewhere classified ==